=== PATIENT | female | born 1945 | race Hispanic/Latino ===

== ENCOUNTER → 2018-06-02 | Day surgery (SDC) | payer MEDICARE ==
--- NOTE | 2018-05-31 13:06 | Diagnostic Imaging Report ---
PROCEDURE: Frontal and lateral views of the chest. COMPARISON: None. INDICATIONS: PRE OPERATIVE CHOLELITHIASIS, DENIES CHEST PAIN FINDINGS: Lines/tubes: None. Lungs: Lower lung volumes. Subsegmental atelectasis or scar like opacities in the left lower lobe and lingula. Pleura: There is no pleural effusion or pneumothorax. Heart and mediastinum: Normal heart size. Atherosclerotic calcification of the thoracic aorta. Bones: No acute bony abnormality. Multilevel degenerative changes of the thoracic spine. Gallstones are visualized in the right upper quadrant. IMPRESSION: 1. No acute cardiopulmonary disease. Dictated by: Rafael Flores M.D. on 05/31/2018 at 13:12 Electronically approved by: Rafael Flores M.D. on 05/31/2018 at 13:12
[2018-05-31 13:16] LABS: BASOPHILS # (AUTO) 0.1 (0.0-0.1); BASOPHILS % 0.8 % (0.0-1.0); EOSINOPHILS # (AUTO) 0.1 (0.0-0.4); EOSINOPHILS % 1.7 % (0.0-6.0); HEMATOCRIT 35.4 % (34.2-44.1); HEMOGLOBIN 11.2 g/dL (12.0-16.0); LYMPHOCYTES # (AUTO) 1.5 (1.0-3.2); LYMPHOCYTES % 22.6 % (18.0-39.1); MEAN CORPUSCULAR HEMOGLOBIN 29.9 pg (28-32); MEAN CORPUSCULAR HGB CONC 31.6 g/dL (31-35); MEAN CORPUSCULAR VOLUME 94.7 fL (81-99); MONOCYTES # (AUTO) 0.6 (0.2-0.8); MONOCYTES % 8.6 % (4.4-11.3); NEUTROPHILS # (AUTO) 4.3 (2.1-6.9); NEUTROPHILS % 66.1 % (38.7-80.0); PLATELET COUNT 263 x10e3/uL (140-360); RED BLOOD COUNT 3.74 x10e6/uL (3.6-5.1); RED CELL DISTRIBUTION WIDTH 13.8 % (11.7-14.4)
[2018-05-31 13:17] LABS: BILIRUBIN,URINE NEGATIVE (NEGATIVE); CLARITY,URINE CLEAR (CLEAR); COLOR,URINE YELLOW (YELLOW); KETONES,URINE NEGATIVE (NEGATIVE); LEUKOCYTE ESTERASE ,URINE NEGATIVE (NEGATIVE); NITRITE,URINE NEGATIVE (NEGATIVE); PROTEIN,URINE DIPSTICK NEGATIVE (NEGATIVE); URINE UROBILINOGEN 0.2 mg/dL (0.2 - 1)
[2018-05-31 13:36] LABS: ALBUMIN 3.7 g/dL (3.5-5.0); ALBUMIN/GLOBULIN RATIO 1.2 (0.8-2.0); ANION GAP 13.8 mmol/L (8-16); CALCIUM 9.5 mg/dL (8.4-10.2); CREATININE, SERUM 1.28 mg/dL (0.57-1.11); POTASSIUM 3.8 mmol/L (3.5-5.1)
[~2018-06-02] MED LIST: ACETAMINOPHEN/CODEINE 300MG - 30MG TAB ONE; BUPIVACAINE 0.25%/EPI 30ML SDV INJ ONE; CLONIDINE HCL0.2 MG PO; DEXAMETHASONE SOD PHOS INJ 4 MG/ML VIAL ONE; FENTANYL CITRATE/PF 100MCG/2 ML INJ ONE; GLYCOPYRROLATE INJ 1MG/ 5 ML SYR ONE; KETOROLAC TROMETHAMINE 30 MG/ML VIAL ONE; LIDOCAINE HCL 2% LOCAL INJ 5 ML SDV VIAL INJ ONE; LORAZEPAM PO; LOSARTAN-HCTZ1 EAC2 PO; MIDAZOLAM HCL 2 MG/2 ML VIAL ONE; NEOSTIGMINE 5 MG/5ML SYR ONE; OMEPRAZOLE40 MG PO; ONDANSETRON HCL INJ 2 MG/ML VIAL ONE; PROPOFOL IV EMULSION 10 MG/ML 20 ML VIAL ONE; ROCURONIUM BROMIDE 10 MG/ML 5ML VIAL ONE; SEVOFLURANE INHAL SOLN 250 ML PEN BTL ONE; VERAPAMIL ER P200 MG PO; VERAPAMIL PO
--- NOTE | 2018-06-02 13:43 | Operative Report ---
DATE OF PROCEDURE: June 02, 2018 PREOPERATIVE DIAGNOSIS: Cholelithiasis and cholecystitis, chronic. POSTOPERATIVE DIAGNOSIS: Cholelithiasis and cholecystitis, chronic. PROCEDURE PERFORMED: Laparoscopic cholecystectomy. ANESTHESIA: General endotracheal. ESTIMATED BLOOD LOSS: Minimal. DRAINS: None. COMPLICATIONS: None. INDICATIONS AND FINDINGS: The patient is a 73-year-old female who complains of epigastric pain associated with ingestion of fatty food for 6 months. She has 1-cm gallstones. Normal ductal anatomy. Liver chemistries were normal. INTRAOPERATIVE FINDINGS: Cholelithiasis and chronic cholecystitis. No ductal dilatation. DESCRIPTION OF PROCEDURE: With the patient lying on the operative table in the supine position and after administration of general endotracheal anesthesia, she was prepped and draped for laparoscopic cholecystectomy. The procedure was begun by establishing a pneumoperitoneum in the umbilical site after a stab wound was made in that location, and the saline drop test was performed. A pneumoperitoneum was insufflated to 15 mm of pressure, and then the 10/11 trocar was placed in that location. The patient was rotated to the left and with the head up. We placed a 10 mm subxiphoid port also, and then finally 2 lateral working ports, 5 mm each in the right midclavicular line and right anterior axillary line. The gallbladder was then retracted cephalad using graspers. Then we lysed adhesions of the omentum to the gallbladder. We exposed the cystic duct high in the neck and posteriorly, and then identified the cystic duct common bile duct junction. We identified the cystic artery also. At that point, we then decided to go ahead and transect both structures between titanium clips. We went ahead and then mobilized the gallbladder from the liver bed using electrocautery dissection. We detached it and then placed in an Endobag and removed it through the umbilical port. We irrigated the right upper quadrant until the effluent fluid was clear. We searched for any bleeding, bile leak or any bowel injury and none was seen. At that point, we released the pneumoperitoneum and closed the wounds using 0 Vicryl for the umbilical fascia, 3-0 Vicryl for the subcutaneous tissue in that location, as well as the subxiphoid port. The skin of all the ports was closed using yesika. Then 0.25% Marcaine with epinephrine was given as a local block at the end of the case. The patient tolerated the procedure well, and was taken to the recovery room in stable condition. Job#: [id number]
[2018-06-02 15:11] VITALS: BP 152/64
== END | disposition home or self-care (01) ==
LOC: OR 08:25
PROVIDERS: ATTEND Surgery
DX: K80.10 Calculus of gallbladder with chronic cholecystitis without obstruction (principal); I10 Essential (primary) hypertension; K21.9 Gastro-esophageal reflux disease without esophagitis; Z01.810 Encounter for preprocedural cardiovascular examination; Z01.812 Encounter for preprocedural laboratory examination; Z01.811 Encounter for preprocedural respiratory examination
CPT/HCPCS: 36415; 47562; 71046; 80053; 81003; 85025; 88304; 93005; C1766; J1100; J1885; J2001; J2250; J2405; J3490

== ENCOUNTER 2024-07-09 14:45 | Emergency (ER) | payer MEDICARE ==
[~2024-07-09] VITALS: Ht 157.5 cm; Wt 81.6 kg
[~2024-07-09 14:45] MED LIST changes: -ACETAMINOPHEN/CODEINE 300MG - 30MG TAB ONE; -BUPIVACAINE 0.25%/EPI 30ML SDV INJ ONE; -DEXAMETHASONE SOD PHOS INJ 4 MG/ML VIAL ONE; -FENTANYL CITRATE/PF 100MCG/2 ML INJ ONE; -GLYCOPYRROLATE INJ 1MG/ 5 ML SYR ONE; -KETOROLAC TROMETHAMINE 30 MG/ML VIAL ONE; -LIDOCAINE HCL 2% LOCAL INJ 5 ML SDV VIAL INJ ONE; -MIDAZOLAM HCL 2 MG/2 ML VIAL ONE; -NEOSTIGMINE 5 MG/5ML SYR ONE; -ONDANSETRON HCL INJ 2 MG/ML VIAL ONE; -PROPOFOL IV EMULSION 10 MG/ML 20 ML VIAL ONE; -ROCURONIUM BROMIDE 10 MG/ML 5ML VIAL ONE; -SEVOFLURANE INHAL SOLN 250 ML PEN BTL ONE
[2024-07-09 14:49] VITALS: TEMP 98.8
[2024-07-09] MEDS ORDERED: CLOPIDOGREL BISULFATE 75 MG TAB ONE (15:10)
[2024-07-09] MEDS ORDERED: ASPIRIN 81 MG CHEW TAB ONE (15:10)
[2024-07-09 15:15] LABS: BASOPHILS % 0.3 % (0.0-1.0); EOSINOPHILS % 0.4 % (0.0-6.0); HEMOGLOBIN 11.3 g/dL (12.0-16.0); LYMPHOCYTES % 19.9 % (18.0-39.1); MEAN CORPUSCULAR HEMOGLOBIN 30.1 pg (28-32); MEAN CORPUSCULAR HGB CONC 31.4 g/dL (31-35); MONOCYTES % 9.4 % (4.4-11.3); NEUTROPHILS # (AUTO) 7.1 (2.1-6.9); NEUTROPHILS % 69.5 % (38.7-80.0); PLATELET COUNT 253 x10e3/uL (140-360); RED BLOOD COUNT 3.75 x10e6/uL (3.6-5.1); RED CELL DISTRIBUTION WIDTH 14.3 % (11.7-14.4); WHITE BLOOD COUNT 10.16 x10e3/uL (4.8-10.8)
[2024-07-09] MEDS ORDERED: SODIUM CHLORIDE FLUSH 10 ML SYR IV PRN (15:15)
[2024-07-09] MEDS: CLOPIDOGREL BISULFATE 75 MG TAB PO ONE (15:18)
[2024-07-09] MEDS: ASPIRIN 81 MG CHEW TAB PO ONE (15:18)
[2024-07-09] MEDS ORDERED: HEPARIN SOD (PORCINE) 1000 UNIT/ML 30ML ONE (15:25)
[2024-07-09] MEDS ORDERED: SODIUM CHLORIDE 0.9% 1000ML 0 ML ONE (15:26)
[2024-07-09] MEDS ORDERED: HEPARIN SOD/SOD CHLORIDE 0 ML ONE (15:26)
[2024-07-09] MEDS ORDERED: IOPAMIDOL 370 MG/ML 100 ML INFUS..BTL INJ ONE (15:26)
[2024-07-09] MEDS ORDERED: LIDOCAINE HCL 2% LOCAL 20 ML VIAL ONE (15:26)
[2024-07-09] MEDS ORDERED: NITROGLYCERIN/D5W 200 MCG/ML 0 ML ONE (15:26)
[2024-07-09 15:30] VITALS: PULSE 68; RESP 13
[2024-07-09 15:33] LABS: ALANINE AMINOTRANSFERASE 26 IU/L (0-55); ALBUMIN < 0.4 g/dL (3.5-5.0); ALBUMIN/GLOBULIN RATIO 0.1 (0.8-2.0); ALKALINE PHOSPHATASE 88 IU/L (40-150); ANION GAP 13.9 mmol/L (8-16); BILIRUBIN,TOTAL 0.7 mg/dL (0.2-1.2); BLOOD UREA NITROGEN 22 mg/dL (7-26); BUN/CREATININE RATIO 14 (6-25); CALCIUM 9.5 mg/dL (8.4-10.2); CARBON DIOXIDE 20 mmol/L (22-29); CHLORIDE 109 mmol/L (98-107); CREATININE, SERUM 1.54 mg/dL (0.57-1.11); EST GLOMERULAR FILTRATION RATE 35 ML/MIN (>=60); GLUCOSE 114 mg/dL (74-118); POTASSIUM 3.9 mmol/L (3.5-5.1); SODIUM 139 mmol/L (136-145); TOTAL PROTEIN 7.2 g/dL (6.5-8.1)
[2024-07-09 15:51] VITALS: O2SAT 97
[2024-07-09 15:57] LABS: TROPONIN I 0.654 ng/mL (0-0.300)
== END 2024-07-09 16:01 | disposition short-term general hospital (02) ==
LOC: ER 15:11
DX: R07.9 Chest pain, unspecified (principal); I21.3 ST elevation (STEMI) myocardial infarction of unspecified site; I10 Essential (primary) hypertension; R94.31 Abnormal electrocardiogram [ECG] [EKG]
CPT/HCPCS: 36415; 71045; 80053; 83880; 84484; 85025; 93005; 94760; 99284; J1644; J2003; J7030; Q9967